=== PATIENT | female | born 1990 | race Caucasian/White ===

== ENCOUNTER 2017-11-30 14:58 | Emergency (ER) | payer OTHER ==
--- NOTE | 2017-11-30 15:02 | ED Physician Documentation ---
Fall - HISTORIAN Historian: patient - HPI Stated Complaint: fall Chief Complaint: Fall Onset: just prior to arrival Where: home Context: other (fell off 6 ft (apprx) retaining wall ) Associated Symptoms:: no loss of consciousness Location of Pain/Injury: mid back, lower back Injury to Right Extremity: none Injury to Left Extremity: none Further Comments: yes (she reports pain in mid to lower back with touch. Denies any neck pain. no head trauma. Denies LOC . She states she actually "fell on my tailbone first" Denies any loss of control of bowel or bladder. No loss of sensation.) - ROS CONST: no problems NEURO: denies: dizziness, anxiety MS/SKIN/LYMPH: back pain. denies: weakness, numbness, neck pain, ankle swelling , leg swelling EYES/ENT: denies: problems with vision CVS/RESP: denies: chest pain, shortness of breath, palpitations GI/: problems urinating - PAST HX Past History: none Immunizations: UTD Allergies/Adverse Reactions: Allergies Allergy/AdvReac Type Severity Reaction Status Date / Time No Known Allergies Allergy Verified 11/30/17 15:09 Home Medications: Ambulatory Orders Medication Instructions Recorded NK [NK] 11/18/12 - SOCIAL HX Smoking History: non-smoker Alcohol Use: none Drug Use: none - FAMILY HX Family History: none - VITAL SIGNS Vital Signs: Vital Signs Temp Pulse Resp BP Pulse Ox 128/86 05/19/14 08:08 - REVIEWED ASSESSMENTS Nursing Assessment Reviewed: Yes Vitals Reviewed: Yes Progress - Progress Progress: 1628: results discussed with pt and spouse. DG ED Results Lab/Radiology - Radiology Radiology Impressions: Pelvis Clinical history pain Technique AP supine pelvis Findings: Pelvic ring is intact. There is no fracture lytic lesion. Hips are normal Impression: Negative pelvis Electronically signed on Nov 30, 2017 4:04:54 PM CDT by: Lele Edwards Lumbar spine 5 views Clinical history pain Technique AP lateral oblique cone down Findings: There compression fractures of T12 and L1. No burst fracture is seen. The disc and vertebral body height are otherwise normal. There is no spondylolysis or pedicle destruction. Incidental note is gaseous distention of the bowel and stomach Impression: Compression fractures of T2 and L1 Gaseous distention of small bowel large bowel and stomach Electronically signed on Nov 30, 2017 4:08:21 PM CDT by: Lele Edwards Thoracic spine Clinical history: Pain Technique AP lateral swimmer's Findings: There is minimal compression fracture of T12 am also L1. No paravertebral mass is seen. Impression: Compression fractures of T12 and the 1st lumbar vertebra Electronically signed on Nov 30, 2017 4:06:58 PM CDT by: Lele He Physical Exam - Physical Exam General Appearance: no acute distress, alert, c-collar [employer] Head: non-tender, no swelling, no obvious injury Neck: non-tender, painless ROM Eye: FORD ENT: nml external inspection Resp/CVS: chest non-tender, breath sounds nml, no resp. distress, heart sounds nml. No: rib tenderness Abdomen: soft, no organomegaly, normal bowel sounds, no distension, non-tender Neuro: oriented x3, CN's nml as tested, sensation nml, motor nml, mood/affect nml Skin: color nml, no rash Back: normal inspection, other (pain with palpation thoracic and lumbar spine with touch and bilateral lower leg movement. Sensation normal. No obvious injury ) Joint: joints nml, nml ROM - Kelsie Coma Score Eyes Open: Spontaneous Speech: Oriented Motor: Obeys Commands Discharge Clincal Impression: T12 compression fracture Fall Qualifiers: Encounter type: initial encounter Qualified Code(s): W19.XXXA - Unspecified fall, initial encounter Referrals: Primary Doctor,No [Primary Care Provider] - 2 Days Comments: 1. Percocet 5/325 mg take 1 by mouth every 6 hours as needed for pain . 2. Rest 3. Ice/Heat 4. Back brace 5. Follow up with PCP by Saturday 6. Do not return to work until cleared by PCP 7. Return to ER for increasing pain, loss of control of bowel or bladder any other concerns Disposition: HOME, SELF-CARE Decision to Admit: NO Date of Decison to Admit: 11/30/17 Decision Time: 16:39
[2017-11-30 15:09] VITALS: BP 117/72
--- NOTE | 2017-12-01 08:12 | Diagnostic Imaging Report ---
ZACH KHALIL [facility] [id number] [facility] [address] [address] Report Submission Date: Nov 30, 2017 4:06:58 PM CDT Patient Study Name: FIDEL HERNANDEZ Date: Nov 30, 2017 3:26:02 PM CDT Modality Type: DX Gender: F Description: SPINE : 89 Institution: [facility] Physician: ZACH KHALIL Thoracic spine Clinical history: Pain Technique AP lateral swimmer's Findings: There is minimal compression fracture of T12 am also L1. No paravertebral mass is seen. Impression: Compression fractures of T12 and the 1st lumbar vertebra Electronically signed on Nov 30, 2017 4:06:58 PM CDT by: Lele NORRIS
--- NOTE | 2017-12-01 08:13 | Diagnostic Imaging Report ---
ZACH KHALIL [facility] [address] [facility] [address] Report Submission Date: Nov 30, 2017 4:04:54 PM CDT Patient Study Name: FIDEL HERNANDEZ Date: Nov 30, 2017 3:23:31 PM CDT Modality Type: DX Gender: F Description: PELVIS : 89 Institution: [facility] Physician: ZACH KHALIL Pelvis Clinical history pain Technique AP supine pelvis Findings: Pelvic ring is intact. There is no fracture lytic lesion. Hips are normal Impression: Negative pelvis Electronically signed on Nov 30, 2017 4:04:54 PM CDT by: Lele NORRIS
--- NOTE | 2017-12-01 08:14 | Diagnostic Imaging Report ---
ZACH KHALIL [facility] [address] [facility] [address] [place], [place]. [address] Report Submission Date: Nov 30, 2017 4:08:21 PM CDT Patient Study Name: FIDEL HERNANDEZ Date: Nov 30, 2017 3:21:56 PM CDT Modality Type: DX Gender: F Description: SPINE : 89 Institution: [facility] Physician: ZACH KHALIL Lumbar spine 5 views Clinical history pain Technique AP lateral oblique cone down Findings: There compression fractures of T12 and L1. No burst fracture is seen. The disc and vertebral body height are otherwise normal. There is no spondylolysis or pedicle destruction. Incidental note is gaseous distention of the bowel and stomach Impression: Compression fractures of T2 and L1 Gaseous distention of small bowel large bowel and stomach Electronically signed on Nov 30, 2017 4:08:21 PM CDT by: Lele NORRIS
== END 2017-11-30 16:54 | disposition home or self-care (01) ==
LOC: ED 14:58
DX: S22.089A Unspecified fracture of T11-T12 vertebra, initial encounter for closed fracture (principal); W19.XXXA Unspecified fall, initial encounter
CPT/HCPCS: 72072; 72110; 72170; 99283

== ENCOUNTER 2018-03-07 20:31 | Emergency (ER) | payer SELFPAY ==
--- NOTE | 2018-03-07 21:03 | ED Physician Documentation ---
General Adult - HISTORIAN Historian: patient - HPI Stated Complaint: abd pain Chief Complaint: General Adult Onset: hours Timing: still present Severity: moderate Further Comments: yes (Pt is a 27 yo female with abd pain and vag bleeding. Pt says she felt a pop in her L side and then started bleeding. Pt states that she has a hx endometriosis and had an u/s and CT scan about a month ago. A L ovarian cyst was seen [facility] that [facility] Pt has had mild nausea. Pt's LMP was 6-5-18 but was unlike her usual menses. She had bleeding then spotting then bleeding again on successive days. Pt had an IUD removed in September and may not have yet re-established her normal cycle, she says.) - ROS CONST: no problems EYES/ENT: none CVS/RESP: none GI/: other (vag bleeding) MS/SKIN/LYMPH: none - PAST HX Past History: none Other History: none Allergies/Adverse Reactions: Allergies Allergy/AdvReac Type Severity Reaction Status Date / Time No Known Allergies Allergy Verified 03/07/18 20:58 Home Medications: Ambulatory Orders Medication Instructions Recorded NK [NK] 11/18/12 - SOCIAL HX Smoking History: less than 1 pack/day - FAMILY HX Family History: No - VITAL SIGNS Vital Signs: Vital Signs Temp Pulse Resp BP Pulse Ox 117/72 11/30/17 16:54 - REVIEWED ASSESSMENTS Nursing Assessment Reviewed: Yes Vitals Reviewed: Yes Progress - Results/Orders Results/Orders: Report from [facility] 01/24/18 US: Partially compressed hemorrhagic cyst in L ovary, 1.7 x 1.4 x 1.2 cm; 1 cm myometrial fibroid in uterine neck. CT: Crenelated sub 3 cm adnexal cyst, likely small hemorrhagic cyst. D/w [facility] income tax preparer, Dr. Miguel Rx: norgestimate/ethinyl estradiol 0.25mg/35mcg (Sprintec) Take 4 tabs by mouth each day for 4 days; then 3 tabs by mouth each day for 3 days; then 2 tab by mouth each day for 2 days; then 1 tab by mouth for 1 day. Follow up with your income tax preparer doctor (Call on Saturday) or with Dr. Miguel income tax preparer at [facility] Tel. [phone]. General Adult Physical Exam - PHYSICAL EXAM GENERAL APPEARANCE: mild distress EENT: pharynx normal NECK: normal inspection, supple RESPIRATORY: no resp distress, chest non-tender, breath sounds normal CVS: reg rate & rhythm, heart sounds normal ABDOMEN: soft, no organomegaly, normal bowel sounds, tenderness (mild L sided tenderness), other (Pelvic exam: 3-4 cc blood in vault; mild L adnexal tenderness) BACK: normal inspection, no CVA tenderness SKIN: warm/dry, normal color EXTREMITIES: non-tender, normal range of motion, no evidence of injury NEURO: oriented X3, motor nml, sensation nml Discharge Clincal Impression: vag bleeding, ovarian cyst Referrals: Med Mccauley MD [Primary Care Provider] - Condition: Stable Disposition: 01 HOME, SELF-CARE Decision to Admit: NO Decision Time: 23:00
[2018-03-07] MEDS ORDERED: 0.9 % SODIUM CHLORIDE 1,000 ML IV ONE (21:25)
[2018-03-07] MEDS ORDERED: ONDANSETRON HCL/PF 4 MG/ 2ML VIAL IVP ONE (21:26)
[2018-03-07 21:52] LABS: BASOPHILS % 0.4 (0.0-1.5); EOSINOPHILS % 4.5 % (0.0-6.8); MEAN CORPUSCULAR HEMOGLOBIN 30.8 pg (28.0-34.0); MEAN CORPUSCULAR VOLUME 90.8 fl (80.0-100.0); MONOCYTES % 4.8 % (0.0-11.0); NEUTROPHILS # 5.9 # k/uL (1.4-7.7)
[2018-03-07 22:07] LABS: eGFR (African) > 60; eGFR (Non-African) > 60
[2018-03-07 23:23] VITALS: BP 101/60
[2018-03-09 07:38] LABS: APPEARANCE,URINE CLEAR (CLEAR); COLOR,URINE AMBER (YELLOW); OCCULT BLOOD,URINE 3+ (NEGATIVE); PH URINE 5.5 (5.0 - 8.0)
== END 2018-03-07 23:15 | disposition home or self-care (01) ==
LOC: ED 20:31
DX: N93.8 Other specified abnormal uterine and vaginal bleeding (principal); N83.202 Unspecified ovarian cyst, left side
CPT/HCPCS: 80053; 81002; 85025; 99284